=== PATIENT | female | born 1945 | race Caucasian/White ===

== ENCOUNTER 2023-09-14 11:00 | Inpatient (IN) | payer BC ==
[~2023-09-14] VITALS: Ht 160 cm; Wt 57.6 kg
[2023-09-14 11:00] VITALS: BP_SYST 143; PULSE 88; RESP 16; TEMP 98.8; O2SAT 99
[2023-09-14] MEDS ORDERED: ONDANSETRON HCL 4 MG/2 ML VIAL IVP ONE (11:30)
[2023-09-14] MEDS ORDERED: MORPHINE 2 MG/ML INJ. SYRINGE IVP ONE (11:30)
[2023-09-14 11:45] LABS: ANION GAP 9 (5-15); CALCIUM 9.5 mg/dL (8.4-11.0); CARBON DIOXIDE 27 mmol/L (23-29); CHLORIDE 95 mmol/L (98-107); CREATININE 0.65 mg/dL (0.55-1.30); GLUCOSE 133 mg/dL (74-106); POTASSIUM 3.7 mmol/L (3.5-5.1); SODIUM SERUM 131 mmol/L (136-145); UREA NITROGEN, BLOOD 13 mg/dL (8-21)
[2023-09-14 11:46] LABS: BILIRUBIN,URINE NEGATIVE (NEGATIVE); BLOOD, URINE NEGATIVE (NEGATIVE); CLARITY/URINE CLEAR (CLEAR); COLOR,URINE YELLOW (YELLOW); GLUCOSE,URINE NEGATIVE (NEGATIVE); KETONES,URINE TRACE (NEGATIVE); LEUKOCYTE ESTERASE ,URINE NEGATIVE (NEGATIVE); NITRITE, URINE NEGATIVE (NEGATIVE); PROTEIN URINE 1+ (NEGATIVE)
[2023-09-14 11:51] LABS: BASOPHILS % (AUTO) 0.2 % (0.0-2.0); EOSINOPHILS % (AUTO) 0.1 % (0.0-4.0); HEMATOCRIT 38.8 % (36-48); HEMOGLOBIN 12.2 g/dL (12.0-16.0); LYMPHOCYTES # (AUTO) 0.8 K/uL (1.0-5.5); LYMPHOCYTES % (AUTO) 6.9 % (20.5-51.5); MEAN CORPUSCULAR HEMOGLOBIN 27 pg (27-31); MEAN CORPUSCULAR HGB CONC 32 % (32-36); MEAN CORPUSCULAR VOLUME 87 fL (79.0-98.0); MONOCYTES # (AUTO) 0.8 K/uL (0.0-1.0); MONOCYTES % (AUTO) 6.6 % (1.7-9.3); NEUTROPHILS # (AUTO) 10.1 K/uL (1.8-7.7); NEUTROPHILS % (AUTO) 86.2 % (40.0-70.0); PLATELET COUNT (AUTO) 435 K/uL (130-430); RED BLOOD CELL COUNT(AUTO) 4.45 MIL/uL (4.2-6.2); RED CELL DISTRIBUTION WIDTH 14.8 % (9.0-15.0); WHITE BLOOD COUNT (AUTO) 11.8 K/uL (4.8-10.8)
[2023-09-14 11:52] LABS: ALANINE AMINOTRANSFERASE 41 U/L (12-78); ALBUMIN 3.3 g/dL (3.4-4.8); ASPARTATE AMINOTRANSFERASE 25 U/L (10-37); LIPASE 14 U/L (16-77); TOTAL BILIRUBIN 0.4 mg/dL (0.0-1.0); TOTAL PROTEIN, SERUM 7.3 g/dL (6.4-8.3)
[2023-09-14] MEDS ORDERED: cefTRIAXone 1 GM IVPB PREMIX 50 ML IV ONE (14:45)
[2023-09-14] MEDS ORDERED: ONDANSETRON HCL 4 MG/2 ML VIAL IVP PRN (15:15)
[2023-09-14] MEDS ORDERED: ACETAMINOPHEN 325 MG TABLET PO PRN ×2 (15:15)
[2023-09-14] MEDS ORDERED: MORPHINE 2 MG/ML INJ. SYRINGE IVP PRN (15:15)
[2023-09-14] MEDS ORDERED: KETOROLAC TROMETHAMINE 30 MG VIAL IVP ONE (15:15)
[2023-09-14] MEDS ORDERED: ALBUTEROL SULFATE 0.083% 2.5 MG/3 ML VIAL.NEB INH PRN (15:15)
[2023-09-14] MEDS ORDERED: PANT40TA45 PO (16:03)
[2023-09-14] MEDS ORDERED: TIMO5DRO39 OP (16:03)
[2023-09-14] MEDS ORDERED: ATOR10TA68 PO (16:03)
[2023-09-14] MEDS ORDERED: ZOFODT4 PO (16:03)
[2023-09-14] MEDS ORDERED: METF-379 PO (16:03)
[2023-09-14] MEDS ORDERED: APIX5TAB4 PO (16:09)
[2023-09-14 16:36] VITALS: BP_SYST 139; PULSE 98; O2SAT 96
[2023-09-14] MEDS ORDERED: DIPHENHYDRAMINE INJ 50 MG/ML VIAL IVP ONE (17:00)
[2023-09-14] MEDS ORDERED: ENOXAPARIN SODIUM 40 MG/0.4 ML SYRINGE SUBCUT ONE (17:00)
[2023-09-14] MEDS ORDERED: ATORVASTATIN 10 MG TABLET PO ONE (17:15)
[2023-09-14] MEDS: HYDROcodone/ACETAMIN 5-325 MG TAB (NORCO/ VICODIN) PO PRN (21:06)
[2023-09-14 22:01] VITALS: BP_SYST 133; PULSE 76; RESP 18; TEMP 98.5
[2023-09-14] MEDS: APIXABAN 2.5 MG TABLET PO SCH (23:53)
[2023-09-15] MEDS: HYDROcodone/ACETAMIN 5-325 MG TAB (NORCO/ VICODIN) PO PRN ×3 (04:15→22:06)
[2023-09-15 06:09] LABS: BASOPHILS % (AUTO) 0.2 % (0.0-2.0); EOSINOPHILS % (AUTO) 0.1 % (0.0-4.0); HEMATOCRIT 37.1 % (36-48); HEMOGLOBIN 11.9 g/dL (12.0-16.0); LYMPHOCYTES # (AUTO) 1.1 K/uL (1.0-5.5); LYMPHOCYTES % (AUTO) 8.9 % (20.5-51.5); MEAN CORPUSCULAR HEMOGLOBIN 28 pg (27-31); MEAN CORPUSCULAR HGB CONC 32 % (32-36); MEAN CORPUSCULAR VOLUME 86 fL (79.0-98.0); MONOCYTES # (AUTO) 0.9 K/uL (0.0-1.0); NEUTROPHILS # (AUTO) 9.8 K/uL (1.8-7.7); NEUTROPHILS % (AUTO) 82.8 % (40.0-70.0); PLATELET COUNT (AUTO) 404 K/uL (130-430); RED BLOOD CELL COUNT(AUTO) 4.29 MIL/uL (4.2-6.2); RED CELL DISTRIBUTION WIDTH 14.2 % (9.0-15.0); WHITE BLOOD COUNT (AUTO) 11.9 K/uL (4.8-10.8)
[2023-09-15 06:36] LABS: ALANINE AMINOTRANSFERASE 39 U/L (12-78); ANION GAP 6 (5-15); ASPARTATE AMINOTRANSFERASE 25 U/L (10-37); CALCIUM 9.3 mg/dL (8.4-11.0); CARBON DIOXIDE 27 mmol/L (23-29); CHLORIDE 96 mmol/L (98-107); CREATININE 0.59 mg/dL (0.55-1.30); GLUCOSE 119 mg/dL (74-106); PHOSPHORUS 3.2 mg/dL (2.7-4.5); POTASSIUM 4.8 mmol/L (3.5-5.1); SODIUM SERUM 129 mmol/L (136-145); TOTAL BILIRUBIN 0.4 mg/dL (0.0-1.0); TOTAL PROTEIN, SERUM 6.6 g/dL (6.4-8.3); UREA NITROGEN, BLOOD 12 mg/dL (8-21)
[2023-09-15 08:45] VITALS: BP_SYST 149; PULSE 81; RESP 19; TEMP 97.9; O2SAT 98; O2SAT 99
[2023-09-15] MEDS ORDERED: ENOXAPARIN SODIUM 40 MG/0.4 ML SYRINGE SUBCUT SCH (09:00)
[2023-09-15] MEDS: ATORVASTATIN 10 MG TABLET PO SCH (09:16)
[2023-09-15] MEDS: APIXABAN 2.5 MG TABLET PO SCH ×2 (09:21→22:05)
[2023-09-15] MEDS: TIMOLOL MALEATE 0.5% OPHTHALMIC DROPS 5 ML OP SCH ×2 (09:22→22:04)
[2023-09-15] MEDS ORDERED: BISACODYL 10 MG/SUPPOSITORY RC PRN (13:00)
[2023-09-15] MEDS ORDERED: BISACODYL 10 MG/SUPPOSITORY RC ONE (13:30)
[2023-09-15] MEDS ORDERED: POLYETHYLENE GLYCOL 3350, 17 GM/ POWD.PACK PO ONE (13:30)
[2023-09-15] MEDS ORDERED: PSYLLIUM HUSK 1 PKT PACKET PO ONE (13:30)
[2023-09-15 16:00] VITALS: BP_SYST 149; PULSE 85; RESP 20; TEMP 97.7; O2SAT 98
[2023-09-15 20:00] VITALS: BP_SYST 157; PULSE 83; RESP 18; TEMP 97; O2SAT 96
[2023-09-16 00:54] VITALS: BP_SYST 154; PULSE 67; RESP 15; TEMP 99.3; O2SAT 97
[2023-09-16 06:51] LABS: BASOPHILS % (AUTO) 0.2 % (0.0-2.0); EOSINOPHILS % (AUTO) 0.3 % (0.0-4.0); HEMATOCRIT 39.5 % (36-48); HEMOGLOBIN 12.6 g/dL (12.0-16.0); LYMPHOCYTES # (AUTO) 1.2 K/uL (1.0-5.5); LYMPHOCYTES % (AUTO) 10.5 % (20.5-51.5); MEAN CORPUSCULAR HEMOGLOBIN 28 pg (27-31); MEAN CORPUSCULAR HGB CONC 32 % (32-36); MEAN CORPUSCULAR VOLUME 87 fL (79.0-98.0); MONOCYTES # (AUTO) 1.1 K/uL (0.0-1.0); MONOCYTES % (AUTO) 9.2 % (1.7-9.3); NEUTROPHILS # (AUTO) 9.2 K/uL (1.8-7.7); NEUTROPHILS % (AUTO) 79.8 % (40.0-70.0); PLATELET COUNT (AUTO) 420 K/uL (130-430); RED BLOOD CELL COUNT(AUTO) 4.55 MIL/uL (4.2-6.2); RED CELL DISTRIBUTION WIDTH 14.4 % (9.0-15.0); WHITE BLOOD COUNT (AUTO) 11.6 K/uL (4.8-10.8)
[2023-09-16 07:16] LABS: ANION GAP 8 (5-15); CALCIUM 9.6 mg/dL (8.4-11.0); CARBON DIOXIDE 27 mmol/L (23-29); CHLORIDE 96 mmol/L (98-107); CREATININE 0.52 mg/dL (0.55-1.30); GLUCOSE 121 mg/dL (74-106); POTASSIUM 4.6 mmol/L (3.5-5.1); SODIUM SERUM 131 mmol/L (136-145); UREA NITROGEN, BLOOD 9 mg/dL (8-21)
[2023-09-16 07:25] VITALS: O2SAT 97
[2023-09-16 08:32] VITALS: BP_SYST 147; PULSE 93; RESP 16; TEMP 97.1; O2SAT 90
[2023-09-16] MEDS: HYDROcodone/ACETAMIN 5-325 MG TAB (NORCO/ VICODIN) PO PRN ×2 (08:39→18:35)
[2023-09-16] MEDS: ATORVASTATIN 10 MG TABLET PO SCH (08:40)
[2023-09-16] MEDS: APIXABAN 2.5 MG TABLET PO SCH (08:41)
[2023-09-16] MEDS: TIMOLOL MALEATE 0.5% OPHTHALMIC DROPS 5 ML OP SCH (08:43)
[2023-09-16] MEDS ORDERED: POLYETHYLENE GLYCOL 3350, 17 GM/ POWD.PACK PO SCH (09:00)
[2023-09-16] MEDS ORDERED: PSYLLIUM HUSK 1 PKT PACKET PO SCH (09:00)
[2023-09-16] MEDS ORDERED: SODIUM PHOSPHATE,MONO-DIBASIC 133 ML ENEMA RC ONE (09:30)
[2023-09-16 11:30] VITALS: BP_SYST 132; PULSE 68; RESP 17; TEMP 97.9; O2SAT 97
[2023-09-16 17:03] VITALS: BP_SYST 155; PULSE 76; RESP 17; TEMP 98.4; O2SAT 97
== END 2023-09-16 19:30 | disposition home or self-care (01) | DRG 392 ==
LOC: SED 11:00 → SMU 15:01
PROVIDERS: ADMIT Specialist; ATTEND Specialist
DX: K59.00 Constipation, unspecified (principal); J90 Pleural effusion, not elsewhere classified; E87.1 Hypo-osmolality and hyponatremia; J98.11 Atelectasis; R18.8 Other ascites; D75.838 Other thrombocytosis; Z85.07 Personal history of malignant neoplasm of pancreas; Z85.3 Personal history of malignant neoplasm of breast; Z79.01 Long term (current) use of anticoagulants; Z79.899 Other long term (current) drug therapy
CPT/HCPCS: 36415; 71045; 74018; 76376; 80048; 80053; 81001; 81003; 83690; 83735; 83880; 84100; 84484; 85025; 85379; 93005; 96365; 96375; 97112-GP; 97116-GP; 99285; J0696; J1885; J2270; J2405